=== PATIENT | male | born 1945 | race Caucasian/White ===

== ENCOUNTER 2019-01-03 19:17 | Emergency (ER) | payer OTHER ==
[~2019-01-03] VITALS: Ht 152.4 cm; Wt 68.0 kg
[~2019-01-03 19:17] MED LIST: CATAFLAM50 MG PO; HYZAAR 50-12.1 UDTAB; KEFLEX500 MG PO; LIPITOR20 MG; SEPTRA; TAMS0.4C PO; TOPROL XL25 M1
[2019-01-03] MEDS ORDERED: SIMVASTATIN20 MG (19:27)
[2019-01-03] MEDS ORDERED: PLAVIX75 MG (19:28)
[2019-01-03] MEDS ORDERED: SINEMET 10-1001 EACH (19:28)
[2019-01-03] MEDS ORDERED: TAMS0.4C (19:28)
[2019-01-03] MEDS ORDERED: TOPROL XL50 M1 (19:28)
[2019-01-03] MEDS ORDERED: COZAAR100 MG (19:28)
== END 2019-01-03 22:51 | disposition home or self-care (01) ==
LOC: ER 19:17
DX: R33.8 Other retention of urine (principal)

== ENCOUNTER 2019-03-05 17:06 | Emergency (ER) | payer OTHER ==
[~2019-03-05] VITALS: Ht 157.5 cm; Wt 67.1 kg
[~2019-03-05 17:06] MED LIST changes: +COZAAR100 MG; +PLAVIX75 MG; +SIMVASTATIN20 MG; +SINEMET 10-1001 EACH; +TAMS0.4C; +TOPROL XL50 M1
== END 2019-03-05 20:08 | disposition home or self-care (01) ==
LOC: ER 17:06
DX: M54.31 Sciatica, right side (principal); I10 Essential (primary) hypertension

== ENCOUNTER 2021-04-23 09:54 | Inpatient (IN) | payer OTHER ==
[~2021-04-23] VITALS: Ht 162.6 cm; Wt 65.8 kg
[2021-04-23] MEDS ORDERED: TOPROL XL50 M1 PO (10:08)
[2021-04-23] MEDS ORDERED: ACID REDUCER20 M1 PO (10:08)
== END 2021-05-16 20:17 | disposition home or self-care (01) | DRG 690 ==
LOC: ER 09:54 → SEC-K 21:59 → MEDI 21:59
PROVIDERS: ADMIT Specialist; ATTEND Specialist
PROC: 02HV33Z Insertion of Infusion Device into Superior Vena Cava, Percutaneous Approach (ICD-10-PCS; 2021-05-07)
PROC: B24BZZZ Ultrasonography of Heart with Aorta (ICD-10-PCS; principal; 2021-05-16)
DX: N39.0 Urinary tract infection, site not specified (principal); N17.8 Other acute kidney failure; E87.0 Hyperosmolality and hypernatremia; E87.6 Hypokalemia; E86.0 Dehydration; G20 Parkinson's disease; K59.00 Constipation, unspecified; G30.9 Alzheimer's disease, unspecified; F02.80 Dementia in other diseases classified elsewhere, unspecified severity, without behavioral disturbance, psychotic disturbance, mood disturbance, and anxiety; N40.1 Benign prostatic hyperplasia with lower urinary tract symptoms; R33.8 Other retention of urine; B96.20 Unspecified Escherichia coli [E. coli] as the cause of diseases classified elsewhere; F43.21 Adjustment disorder with depressed mood; Z20.822 Contact with and (suspected) exposure to COVID-19
CPT/HCPCS: 72191

== ENCOUNTER 2021-06-14 09:48 | Inpatient (IN) | payer OTHER ==
[~2021-06-14 09:48] MED LIST changes: +ACID REDUCER20 M1 PO; +TOPROL XL50 M1 PO
[2021-06-17] MEDS ORDERED: NEUPRO1 EAC4 (08:04)
[2021-06-17] MEDS ORDERED: FAMOTIDINE40 MG (08:04)
[2021-06-17] MEDS ORDERED: ABATINEX680 MG (08:04)
[2021-06-17] MEDS ORDERED: CLOTRIMAZOLE28 GM (08:04)
[2021-06-17] MEDS ORDERED: SERTRALINE HCL50 MG (08:04)
[2021-06-17] MEDS ORDERED: DONEPEZIL HCL5 MG (08:05)
[2021-06-17] MEDS ORDERED: OMEPRAZOLE20 MG (08:05)
== END 2021-06-17 19:03 | disposition home health service (06) | DRG 57 ==
LOC: AMB-ENDOS 09:48 → MEDI 16:12 → O/R 16:12 → MEDI 16:32
PROVIDERS: ADMIT Surgery; ATTEND Surgery
PROC: 0DH63UZ Insertion of Feeding Device into Stomach, Percutaneous Approach (ICD-10-PCS; principal; 2021-06-14)
DX: G20 Parkinson's disease (principal); R13.10 Dysphagia, unspecified; F32.9 Major depressive disorder, single episode, unspecified; F07.0 Personality change due to known physiological condition; F02.80 Dementia in other diseases classified elsewhere, unspecified severity, without behavioral disturbance, psychotic disturbance, mood disturbance, and anxiety
CPT/HCPCS: 240

== ENCOUNTER 2022-10-21 12:31 | Emergency (ER) | payer OTHER ==
[~2022-10-21] VITALS: Ht 152.4 cm; Wt 45.4 kg
[~2022-10-21 12:31] MED LIST changes: +ABATINEX680 MG; +CLOTRIMAZOLE28 GM; +DONEPEZIL HCL5 MG; +FAMOTIDINE40 MG; +NEUPRO1 EAC4; +OMEPRAZOLE20 MG; +SERTRALINE HCL50 MG
[2022-10-21] MEDS ORDERED: TAMS0.4C (12:36)
[2022-10-21] MEDS ORDERED: ZOCOR80 MG (12:37)
== END 2022-10-21 13:52 | disposition home or self-care (01) ==
LOC: ER 12:31
DX: K94.23 Gastrostomy malfunction (principal); G30.9 Alzheimer's disease, unspecified; F02.80 Dementia in other diseases classified elsewhere, unspecified severity, without behavioral disturbance, psychotic disturbance, mood disturbance, and anxiety; G20 Parkinson's disease